=== PATIENT | female | born 1950 | race Caucasian/White ===

== ENCOUNTER → 2019-06-27 | Outpatient (CLI) | payer MEDICARE ==
[2019-06-27 15:17] LABS: HCT 44.3 % (34.0-46.0); HGB 14.8 gm/dL (11.4-16.0); MCH 31.3 pg (25.0-35.0); MCHC 33.3 g/dL (31.0-37.0); MCV 94.1 fL (80.0-100.0); Mean Platelet Volume 7.8; Platelet Count 244 k/uL (150-450); RBC 4.71 m/uL (3.80-5.40); RDW 11.9 % (11.5-15.5); WBC 7.9 k/uL (3.8-10.6)
[2019-06-27 23:04] LABS: African American GFR (CKD) 103.9 (60.0-200.0); Albumin 4.3 g/dL (3.80-4.90); Albumin/Globulin Ratio 2.69 (1.60-3.17); Anion Gap 8.8 mmol/L (4.00-12.00); BUN/Creat Ratio 35.71 Ratio (12.00-20.00); Calcium 9.4 mg/dL (8.7-10.3); Carbon Dioxide 32.2 mmol/L (21.6-31.8); Globulin 1.6 g/dL (1.6-3.3); Non-African American GFR(CKD) 89.7 (60.0-200.0); Potassium 4.3 mmol/L (3.5-5.5); Total Bilirubin 0.5 mg/dL (0.2-1.2); Total Protein 5.9 g/dL (6.2-8.2)
== END | disposition home or self-care (01) ==
LOC: LABMAIN 14:31
PROVIDERS: ATTEND Podiatrist Foot & Ankle Surgery
DX: Z01.812 Encounter for preprocedural laboratory examination (principal)
CPT/HCPCS: 36415; 80053; 85027

== ENCOUNTER 2019-07-08 11:38 | Day surgery (SDC) | payer MEDICARE ==
[2019-07-03 14:03] VITALS: BMI 24.7
[~2019-07-08 11:38] MED LIST: DEXAMETHASONE SOD PHOSPHATE 10 MG/ML 1 ML VIAL IV ONE; HYDROmorphone 0.5 MG/0.5 ML SYRINGE IVP PRN; LACTATED RINGERS 1,000 ML IV SCH; LIDOCAINE 1% 20 ML VIAL (10MG/ML) FOR IV START INTRADERMA PRN; Pre Op ABX Message 1 EACH MISC MISCELLANE ONE
[2019-07-08 11:57] VITALS: RESP 16; TEMP 97.3
[2019-07-08] MEDS ORDERED: ONDANSETRON 4 MG/2 ML VIAL IVP ONE (12:20)
[2019-07-08] MEDS ORDERED: MIDAZOLAM 2 MG/2 ML VIAL ONE (12:53)
[2019-07-08] MEDS ORDERED: PROPOFOL 10 MG/ML 20 ML VIAL IV ONE (12:53)
[2019-07-08] MEDS ORDERED: ePHEDrine SULFATE/0.9% NACL/PF 50 MG/5 ML SYRINGE IV ONE (12:53)
[2019-07-08] MEDS ORDERED: fentaNYL (PF) 50 MCG/ML 2 ML AMP ONE (12:53)
[2019-07-08] MEDS ORDERED: KETAMINE 10 MG/ML 20 ML VIAL ONE (12:53)
[2019-07-08] MEDS ORDERED: PHENYLEPHRINE-0.9% NACL SYG 1 MG/10 ML SYRINGE ONE (12:53)
[2019-07-08] MEDS ORDERED: SODIUM CHLORIDE 0.9% 100 ML with ceFAZolin 2,000 MG IV ONE ×2 (13:21)
[2019-07-08] MEDS ORDERED: BUPIVACAINE (PF) 0.25% 30 ML VIAL SQ ONE (13:31)
--- NOTE | 2019-07-08 13:58 | P.OP ---
Date of Procedure: 07/08/19 Preoperative Diagnosis: plantar declination did third metatarsal right foot Postoperative Diagnosis: same Procedure(s) Performed: V metatarsal elevating osteotomy third metatarsal right foot Anesthesia: MAC Surgeon: Eran Cunningham Indications for Procedure: painful callus sub-third metatarsal phalangeal joint right foot Operative Findings: unremarkable Description of Procedure: on the date of surgery the patient was taken to the operating room in good condition placed on the operating table in a supine position where an IV was started adequate IV anesthetic agents were utilized area anesthesia was then there supplemented with approximately 12.5 milliliters of 0.25% plain Marcaine given in an infiltrative block third ray complex of the patient's right foot the patient's right foot and ankle were then prepped and draped in the usual aseptic manner and over heavy web roll padding an ankle tourniquet was placed above the malleoli of the patient's right ankle the patient's right foot and ankle were then elevated and exsanguinated of blood and after approximately time the ankle tourniquet to the patient's right ankle was inflated to proximally 250 mm of mercury this point in time attention was directed to the dorsal aspect of the patient's right foot where an approximately 4 cm dorsal linear incision was made the incision was deepened via sharp dissection down through the level of the subcutaneous tissue layers all neurovascular structures encountered were identified isolated and were retracted and any bleeding vessels were clamped electrocauterized dissection was then carried deep down to level Periosteal Structures Overlying the redundant the shaft of the third metatarsal these were incised in line with the original skin incision and underscored and retracted from the underlying bone V metatarsal elevating osteotomy was then performed at the metaphysis of the third metatarsal on completion of this metatarsal osteotomy the capital fragment was displaced up by approximately 2 and a half millimeters capital fragment was impacted back upon the spike created by the osteotomy itself and then fixated with a 0.045 K wire throughout the surgical procedure copious amounts of sterile saline Evelyn was used to irrigate the surgical site Epsom periosteal structures and then coaptated and maintained utilizing 3-0 Vicryl simple interrupted suture subcutaneous tissue layers were coaptated and maintained utilizing 3-0 Vicryl simple interrupted suture and the subcutaneous tissues were then coaptated and maintained utilizing 3-0 Vicryl simple interrupted suture the skin was then closed utilizing 4-0 nylon simple interrupted suture Amaris Princelix fluffs and four-inch oh band was used to form a compression dressing and the ankle tourniquet to the patient's right ankle was deflated adequate hemostatic return was seen in all digits the patient's right foot specifically the third digit The patient tolerated the surgery and anesthesia well was taken recovery room in good postoperative condition.
[2019-07-08 14:26] VITALS: BP 120/79; PULSE 60
== END 2019-07-08 15:15 | disposition home or self-care (01) ==
LOC: OR 11:38
PROVIDERS: ATTEND Podiatrist Foot & Ankle Surgery
DX: M25.774 Osteophyte, right foot (principal); M89.371 Hypertrophy of bone, right ankle and foot; I10 Essential (primary) hypertension; F17.200 Nicotine dependence, unspecified, uncomplicated; Z79.899 Other long term (current) drug therapy; Z90.79 Acquired absence of other genital organ(s)
CPT/HCPCS: 28308; C1713; J2250; J1100; J2405; J0690; J3010; J2370; J2704

== ENCOUNTER → 2021-02-23 | Outpatient (CLI) | payer MEDICARE ==
--- NOTE | 2021-02-23 10:20 | US ---
EXAMINATION TYPE: US duplex aorta DATE OF EXAM: 02/23/2021 COMPARISON: NONE CLINICAL HISTORY: Z13.6 encounter for screening for cardiovascular. current smoker, no symptoms, no f amily history, diagnosis states screening office called by Justina Bowen to get a new diagnosis, but Dr Segovia refused. EXAM MEASUREMENTS: Abdominal Aorta: Proximal: 2.5 x 2.7cm Mid: 1.9 x 1.8cm Distal: 1.4 x 1.6cm Bifurcation: RT = 0.7cm, Lt = 0.8cm Normal caliber aorta seen IMPRESSION: 1. Normal screening abdominal aorta without aneurysm.
== END | disposition home or self-care (01) ==
LOC: RADUSWWP 08:56
PROVIDERS: ATTEND Family Medicine
DX: Z12.31 Encounter for screening mammogram for malignant neoplasm of breast (principal); Z13.6 Encounter for screening for cardiovascular disorders; Z78.0 Asymptomatic menopausal state
CPT/HCPCS: 93979

== ENCOUNTER → 2021-03-29 | Outpatient (CLI) | payer MEDICARE ==
--- NOTE | 2021-03-29 15:39 | XR ---
EXAMINATION TYPE: XR foot complete RT DATE OF EXAM: 03/29/2021 COMPARISON: NONE HISTORY: Pain TECHNIQUE: Three views are submitted. FINDINGS: The osseous structures are intact. There is no acute fracture or dislocation. There is hypertrophi c arthropathy first MTP joint. Distal joint limited due to positioning. Diffuse osteopenia. Chronic a ppearing fracture involving the third metatarsal. Calcaneal spurs noted. Diffuse osteopenia. IMPRESSION: 1. 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 2. Diffuse osteopenia. 3. Calcaneal spurs.
--- NOTE | 2021-03-30 15:21 | BD ---
EXAMINATION TYPE: Axial Bone Density DATE OF EXAM: 03/29/2021 COMPARISON: NONE CLINICAL HISTORY: Postmenopausal screening Height: 5 FT 4 IN Weight: 145 FRAX RISK QUESTIONS: Alcohol (3 or more units per day): NO Family History (Parent hip fracture): NO Glucocorticoids (More than 3mos): NO (Ex: prednisone, prednisolone, methylprednisolone, dexamethasone, and hydrocortisone). History of Fracture in Adulthood: NO Secondary Osteoporosis: 1. Type 1 Diabetes: NO 2. Hyperthyroidism: NO 3. Menopause before 45: NO 4. Malnutrition: NO 5. Chronic liver disease: NO Rheumatoid Arthritis: NO Current Tobacco Use: YES RISK FACTORS HISTORY OF: Surgery to Spine/Hip(right/left)/Wrist (right/left): NO Family History of Osteoporosis: NO Active: YES Diet low in dairy products/other sources of calcium: NO Postmenopausal woman: AGE 50/51 Take estrogen and/or progesterone medications: NO Lost more than 2 inches in height since high school: YES MEDICATIONS: Additional Medications: BLOOD PRESSURE MEDS, Additional History: EXAM MEASUREMENTS: Bone mineral densitometry was performed using the [employer] System. Bone mineral density as measured about the Lumbar spine is: ----- L1-L4(G/cm2): 1.050 T Score Values are as follows: ----- L2: -2.5 ----- L3: -0.3 ----- L4: 0.6 ----- L1-L4: -1.1 BASELINE Bone mineral density about the R hip (g/cm2): 0.790 Bone mineral density about the L hip (g/cm2): 0.750 T Score values are as follows: -----R Neck: -1.8 -----L Neck: -2.1 -----R Total: -1.6 -----L Total: -2.2 BASELINE IMPRESSION: Osteopenia (T Score between -2.5 and -1). There is slightly increased risk of fracture and the patient may be considered for treatment. Re-Screen 2-5 years. NOTE: T-SCORE=SD OF THE YOUNG ADULT MEAN.
== END | disposition home or self-care (01) ==
LOC: RADBDWWP 12:41
PROVIDERS: ATTEND Family Medicine
DX: Z12.31 Encounter for screening mammogram for malignant neoplasm of breast (principal); Z13.820 Encounter for screening for osteoporosis; Z13.6 Encounter for screening for cardiovascular disorders; M19.079 Primary osteoarthritis, unspecified ankle and foot; M85.871 Other specified disorders of bone density and structure, right ankle and foot; M77.31 Calcaneal spur, right foot
CPT/HCPCS: 77063; 77067; 77080

== ENCOUNTER 2022-03-13 08:26 | Emergency (ER) | payer MEDICARE ==
[2022-03-13 08:31] VITALS: BP 133/65; PULSE 60; RESP 20; TEMP 98
--- NOTE | 2022-03-13 08:51 | XR ---
EXAMINATION TYPE: XR chest 2V DATE OF EXAM: 03/13/2022 8:47 AM COMPARISON: None TECHNIQUE: XR chest 2V Frontal and lateral views of the chest. CLINICAL INDICATION:Female, 71 years old with history of Injury; FINDINGS: Lungs/Pleura: There is no evidence of pleural effusion, focal consolidation, or pneumothorax. Pulmonary vascularity: Unremarkable. Heart/mediastinum: Cardiomediastinal silhouette is unremarkable. Musculoskeletal: No acute osseous pathology. IMPRESSION: No acute cardiopulmonary disease/process.
--- NOTE | 2022-03-13 09:55 | ED ---
Fall HPI - General Chief Complaint: Fall Stated Complaint: fall, rib pain Time Seen by Provider: 03/13/22 08:45 Source: patient Mode of arrival: ambulatory - History of Present Illness Initial Comments: 71-year-old female presents emergency room and after she sustained a fall. Patient reports that she tripped on Saturday while ambulating. Her sandal got caught and she fell forward landing on her left-sided ribs. Patient did land on concrete. Admits that she sustained mouth trauma. Denies any headaches or visual pain. No neck pain. She did not lose consciousness. She does not take blood thinners. She did go to the dentist yesterday and already has dental repair pending. Patient comes in today complaining of left-sided chest wall pain and concern for rib fracture. She admits that she does not want to take a deep breath in due to the pain. Denies shortness of breath. No fevers, chills or cough. Denies any back pain. No numbness, tingling or weakness in her extremities. No other alleviating, precipitating or modifying factors - Related Data Home Medications Medication Instructions Recorded Confirmed Ascorbic Acid [Vitamin C] 500 mg PO DAILY 07/03/19 07/08/19 Multivitamins, Thera [Multivitamin 1 tab PO DAILY 07/03/19 07/08/19 (formulary)] [place]ont-3 Fatty Acids/Fish Oil [Fish 1 each PO DAILY 07/03/19 07/08/19 Oil 1,000 mg Softgel] Triamterene/Hydrochlorothiazid 1 each PO QAM 07/03/19 07/08/19 [Triamterene-Hctz 37.5-25 mg Tb] Varenicline [Chantix Continuing 1 mg PO BID 07/03/19 07/08/19 Pack] Previous Rx's Medication Instructions Recorded Lidocaine 5% Patch [Lidoderm] 1 patch TOPICAL DAILY #25 patch 03/13/22 Allergies Allergy/AdvReac Type Severity Reaction Status Date / Time No Known Allergies Allergy Verified 03/13/22 08:31 Review of Systems ROS Statement: Those systems with pertinent positive or pertinent negative responses have been documented in the HPI. ROS Other: All systems not noted in ROS Statement are negative. Past Medical History Past Medical History: No Reported History History of Any Multi-Drug Resistant Organisms: None Reported Past Surgical History: Tubal Ligation Past Psychological History: No Psychological Hx Reported Smoking Status: Current every day smoker Past Alcohol Use History: Occasional Past Drug Use History: None Reported General Exam Limitations: no limitations General appearance: alert, in no apparent distress Head exam: Present: atraumatic, normocephalic, normal inspection Eye exam: Present: normal appearance, PERRL, EOMI. Absent: scleral icterus, conjunctival injection, periorbital swelling ENT exam: Present: normal exam, mucous membranes moist Neck exam: Present: normal inspection. Absent: tenderness, meningismus, lymphadenopathy Respiratory exam: Present: normal lung sounds bilaterally, chest wall tenderness (left chest wall). Absent: respiratory distress, wheezes, rales, rhonchi, stridor Cardiovascular Exam: Present: regular rate, normal rhythm, normal heart sounds. Absent: systolic murmur, diastolic murmur, rubs, gallop, clicks GI/Abdominal exam: Present: soft, normal bowel sounds. Absent: distended, tenderness, guarding, rebound, rigid Extremities exam: Present: normal inspection, full ROM, normal capillary refill. Absent: tenderness, pedal edema, joint swelling, calf tenderness Back exam: Present: normal inspection Neurological exam: Present: alert, oriented X3, CN II-XII intact Psychiatric exam: Present: normal affect, normal mood Skin exam: Present: warm, dry, intact, normal color. Absent: rash Course Vital Signs 03/13/22 08:29 Temperature 98 F Pulse Rate 60 Respiratory 20 Rate Blood Pressure 133/65 O2 Sat by Pulse 98 Oximetry Medical Decision Making - Medical Decision Making Upon arrival to room 32. Thorough history and physical exam is performed. Patient is offered something for pain control however refused and she is sent over for x-ray imaging which does not demonstrate a rib fracture. No pneumothorax or rib contusion. Results are discussed with the patient. She will be prescribed Lidoderm patches. Patient given an incentive inspirometer. She will use Motrin at home for pain control. Instructed to follow-up with primary care doctor to 4 days and return for any new or worsening symptoms. Patient was agreeable and discharged home in stable condition Disposition Clinical Impression: Fall, Rib pain on left side, Muscle strain of chest wall Disposition: HOME SELF-CARE Condition: Stable Instructions (If sedation given, give patient instructions): Chest Wall Pain (ED) Additional Instructions: Use the incentive spirometer several times throughout the day. Use the lidocaine patches as directed. If they are expensive, asked for the [id number] alternative. Follow up with your doctor in 2-4 days and return for any new or worsening symptoms Prescriptions: Lidocaine 5% Patch [Lidoderm] 1 patch TOPICAL DAILY #25 patch Is patient prescribed a controlled substance at d/c from ED?: No Referrals: Art Segovia MD [Primary Care Provider] - 1-2 days Time of Disposition: 09:55
== END 2022-03-13 10:33 | disposition home or self-care (01) ==
LOC: EC 08:26
DX: S29.011A Strain of muscle and tendon of front wall of thorax, initial encounter (principal); R07.81 Pleurodynia; F17.200 Nicotine dependence, unspecified, uncomplicated; W19.XXXA Unspecified fall, initial encounter
CPT/HCPCS: 71046; 99284

== ENCOUNTER → 2022-03-20 | Outpatient (CLI) | payer MEDICARE ==
--- NOTE | 2022-03-20 08:39 | CT ---
EXAMINATION TYPE: CT brain wo con DATE OF EXAM: 03/20/2022 COMPARISON: None HISTORY: 71-year-old female R55, Syncope and collapse TECHNIQUE: Examination was done in axial plane without intravenous contrast. Coronal and sagittal r econstructions performed. CT DLP: 1009.40 mGycm Automated exposure control for dose reduction was used. FINDINGS: There is no evidence of acute intracranial hemorrhage, acute ischemic changes, mass, mass-effect, or extra-axial fluid collection. There is no effacement of cerebral sulci or basal subarachnoid cister ns. There is no hydrocephalus. There is no midline shift. Mcnair-white matter distinction is preserv ed. Mild atherosclerotic calcifications in the carotid siphons. Incidental 6 mm osteoma in inferior left frontal sinus. Right frontal sinus hypoplastic. Scattered mi ld mucosal thickening ethmoid air cells. Mastoid air cells well pneumatized. Orbits and globes are in tact. There is also a 1.6 cm broad-based bony protuberance from the right frontal calvarium, likely o uter table osteoma. IMPRESSION: No acute intracranial abnormality seen. 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 Mild chronic ethmoid sinus disease.
== END | disposition home or self-care (01) ==
LOC: RADCTMAIN 07:14
PROVIDERS: ATTEND Family Medicine
DX: R55 Syncope and collapse (principal)
CPT/HCPCS: 70450

== ENCOUNTER → 2022-03-22 | Outpatient (CLI) | payer MEDICARE ==
--- NOTE | 2022-03-22 16:22 | US ---
EXAMINATION TYPE: US carotid duplex BILAT DATE OF EXAM: 03/22/2022 COMPARISON: NONE CLINICAL HISTORY: R55 SYNCOPE. Syncope TECHNIQUE: Carotid duplex ultrasound examination. Indirect Doppler criteria was utilized. FINDINGS: EXAM MEASUREMENTS: RIGHT: Peak Systolic Velocity (PSV) cm/sec ----- Right CCA: 86.8 ----- Right ICA: 91.5 ----- Right ECA: 83.9 ICA/CCA ratio: 1.1 RIGHT: End Diastole cm/sec ----- Right CCA: 10.0 ----- Right ICA: 32.3 ----- Right ECA: 9.1 LEFT: Peak Systolic Velocity (PSV) cm/sec ----- Left CCA: 89.4 ----- Left ICA: 91.0 ----- Left ECA: 95.0 ICA/CCA ratio: 1.0 LEFT: End Diastole cm/sec ----- Left CCA: 18.7 ----- Left ICA: 52.0 ----- Left ECA: 9.6 VERTEBRALS (direction of flow): Right Vertebral: Antegrade Left Vertebral: Antegrade Rhythm: Normal No significant stenosis. There is focal plaque within knee right carotid bulb. No significant flow-li miting stenoses are evident. IMPRESSION: No significant flow-limiting stenosis bilateral carotid bifurcations Criteria for Assigning % of Stenosis / Diameter reduction (Estimation based on the indirect measurements of the internal carotid artery velocities (ICA PSV). 1. Normal (no stenosis)=ICA PSV < 125 cm/s: ratio < 2.0: ICA EDV<40 cm/s. 2. Less than 50% stenosis=ICA PSV < 125 cm/s: ratio < 2.0: ICA EDV<40 cm/s. 3. 50 to 69% stenosis=ICA PSV of 125 to 230 cm/s: ration 2.0 ? 4.0: ICA EDV 40-100 cm/s. 4. Greater than 70% stenosis to near occlusion= ICA PSV > 230 cm/s: ratio > 4.0: ICA EDV > 100 cm/s. 5. Near occlusion= ICA PSV velocities may be low or undetectable: variable ratio and ICA EDV. 6. Total occlusion=unable to detect flow.
== END | disposition home or self-care (01) ==
LOC: RADUSWWP 14:49
PROVIDERS: ATTEND Family Medicine
DX: R55 Syncope and collapse (principal)
CPT/HCPCS: 93880

== ENCOUNTER → 2022-04-30 | Outpatient (CLI) | payer MEDICARE ==
--- NOTE | 2022-05-01 09:32 | CA ---
Transthoracic Echo Report Name: Humera Saenz Age: 71 Gender: F : 1950 Exam Date: 04/30/2022 11:27 Exam Location: [facility] Ht (in): 64 Wt (lb): 130 Ordering Physician: Art Segovia MD Attending/Referring Phys: Art Segovia MD [employer] Dara Ash RDCS Procedure CPT: Indications: R55 Syncope Cardiac Hx: Technical Quality: Fair Contrast 1: Total Dose (mL): Contrast 2: Total Dose (mL): MEASUREMENTS (Male / Female) Normal Values 2D ECHO LV Diastolic Diameter PLAX 4.3 cm 4.2 - 5.9 / 3.9 - 5.3 cm LV Systolic Diameter PLAX 2.9 cm IVS Diastolic Thickness 1.2 cm 0.6 - 1.0 / 0.6 - 0.9 cm LVPW Diastolic Thickness 1.2 cm 0.6 - 1.0 / 0.6 - 0.9 cm LV Relative Wall Thickness 0.5 RV Internal Dim ED PLAX 3.8 cm LA Volume 42.6 cm??? 18 - 58 / 22 - 52 cm??? M-MODE Aortic Root Diameter MM 3.2 cm LA Systolic Diameter MM 3.9 cm LA Ao Ratio MM 1.2 AV Cusp Separation MM 1.8 cm DOPPLER AV Peak Velocity 162.2 cm/s AV Peak Gradient 10.5 mmHg AV Mean Velocity 106.2 cm/s AV Mean Gradient 5.1 mmHg AV Velocity Time Integral 33.8 cm AI Peak Velocity 491.2 cm/s AI Peak Gradient 96.5 mmHg AI Pressure Half Time 454.4 ms LVOT Peak Velocity 113.1 cm/s LVOT Peak Gradient 5.1 mmHg LVOT Velocity Time Integral 25.8 cm MV Area PHT 2.8 cm??? Mitral E Point Velocity 55.6 cm/s Mitral A Point Velocity 52.9 cm/s Mitral E to A Ratio 1.1 MV Deceleration Time 272.0 ms MV E' Velocity 6.4 cm/s Mitral E to MV E' Ratio 8.8 TR Peak Velocity 251.9 cm/s TR Peak Gradient 25.4 mmHg Right Ventricular Systolic Press 29.4 mmHg FINDINGS Left Ventricle Mildly increased left ventricular wall thickness. Normal left ventricular systolic function with no obvious regional wall motion abnormalities. Normal left ventricular diastolic filling pattern. Left ventricular ejection fraction is estimated at 55-60 %. Right Ventricle Mild right ventricular dilatation. Right ventricular systolic pressure within normal limits. Right Atrium Normal right atrial size. Left Atrium Normal left atrial size. Mitral Valve Structurally normal mitral valve. No mitral stenosis, regurgitation or prolapse. Aortic Valve Trileaflet aortic valve. No aortic stenosis. Mild aortic regurgitation. Tricuspid Valve Structurally normal tricuspid valve. Mild tricuspid regurgitation. Pulmonic Valve Trace pulmonic regurgitation. Pericardium No pericardial effusion. Aorta Normal size aortic root and proximal ascending aorta. CONCLUSIONS Normal biventricular dimension and systolic function Mild aortic insufficiency Previewed by: Dr. Francisco J Au MD (Electronically Signed) Final Date: 01 May 2022 09:31
== END | disposition home or self-care (01) ==
LOC: RADECHMAIN 11:21
PROVIDERS: ATTEND Family Medicine
DX: I35.1 Nonrheumatic aortic (valve) insufficiency (principal)
CPT/HCPCS: 93306

== ENCOUNTER → 2023-04-30 | Outpatient (CLI) | payer MEDICARE ==
--- NOTE | 2023-04-30 10:58 | MM ---
Reason for Exam: Screening (asymptomatic). Last mammogram was performed 2 year(s) and 1 month(s) ago. Patient History: Menarche at age 14. First Full-Term at age 20. Postmenopausal. Risk Values: Rosario 5 year model risk: 1.3%. NCI Lifetime model risk: 3.5%. Prior Study Comparison: 06/12/2016 Screening Mammogram, [facility] [place]. 03/29/2021 Bilateral Screening Mammogram, [facility]. Tissue Density: The breast tissue is heterogeneously dense. This may lower the sensitivity of mammography. Findings: Analyzed By CAD. There is no suspicious group of microcalcifications or new suspicious mass in either breast. Overall Assessment: Negative, BI-RAD 1 Management: Screening Mammogram of both breasts in 1 year. A clinical breast exam by your physician is recommended on an annual basis and results should be correlated with mammographic findings. Note on Rosario scores and lifetime risk: 1. A Rosario score greater than 3% is considered moderate risk. If this is the case, consider specialist referral to assess eligibility for a risk reducing agent. If overall lifetime risk for the development of breast cancer is 20% or higher, the patient may qualify for future screening with alternating mammogram and breast MRI. Electronically signed and approved by: Edmund Rubio D.O.
--- NOTE | 2023-04-30 11:14 | BD ---
EXAMINATION TYPE: Axial Bone Density DATE OF EXAM: 04/30/2023 CLINICAL HISTORY: 72 years old Female. ICD-10 CODE: Z78.0 ASYMPTOMATIC MENOPAUSAL Height: 64.5 Weight: 137.7 FRAX RISK QUESTIONS: Alcohol (3 or more units per day): no Family History (Parent hip fracture): no Glucocorticoids (More than 3mos): no (Ex: prednisone, prednisolone, methylprednisolone, dexamethasone, and hydrocortisone). History of Fracture in Adulthood: no Secondary Osteoporosis: 1. Type 1 Diabetes: no 2. Hyperthyroidism: no 3. Menopause before 45: no 4. Malnutrition: no 5. Chronic liver disease: no Rheumatoid Arthritis: no Current Tobacco Use: yes RISK FACTORS HISTORY OF: Surgery to Spine/Hip(right/left)/Wrist (right/left): no Family History of Osteoporosis: yes Active: yes Diet low in dairy products/other sources of calcium: no Postmenopausal woman: yes Lost more than 2 inches in height since high school: yes MEDICATIONS: Additional History: EXAM MEASUREMENTS: Bone mineral densitometry was performed using the [employer] System. Bone mineral density as measured about the Lumbar spine is: ----- L1-L4(G/cm2): 1.060 T Score Values are as follows: ----- L1: -2.8 ----- L2: -2.1 ----- L3: -0.2 ----- L4: 0.7 ----- L1-L4: -1.0 Z Score Values are as follows: ----- L1: -1.1 ----- L2: -0.3 ----- L3: 1.6 ----- L4: 2.5 ----- L1-L4: 0.8 Bone mineral density has: increased 1.0 % since study of: 03.29.2021 Bone mineral density about the R hip (g/cm2): 0.758 Bone mineral density about the L hip (g/cm2): 0.675 T Score values are as follows: -----R Neck: -2.1 -----L Neck: -2.6 -----R Total: -2.0 -----L Total: -2.6 Z Score values are as follows: -----R Neck: -0.3 -----L Neck: -0.8 -----R Total: -0.4 -----L Total: -1.0 Bone mineral density has: decreased -6.8 % since study of: 10.6.2020 FRAX%s: The graph provided illustrates a 17.6% chance for a major osteoporotic fx and a 7.8% chance f or the hips probability for fx in 10 years time. IMPRESSION: Osteoporosis (T Score less than -2.5). There is increased fracture risk and therapy is usually indicated based on age. Re-Screen 1-2 years. NOTE: T-SCORE=SD OF THE YOUNG ADULT MEAN.
== END | disposition home or self-care (01) ==
LOC: RADMAMWWP 10:29
PROVIDERS: ATTEND Family Medicine
DX: Z12.31 Encounter for screening mammogram for malignant neoplasm of breast (principal); M81.0 Age-related osteoporosis without current pathological fracture; M85.89 Other specified disorders of bone density and structure, multiple sites; Z78.0 Asymptomatic menopausal state
CPT/HCPCS: 77063; 77067; 77080

== ENCOUNTER → 2024-07-22 | Outpatient (CLI) | payer MEDICARE ==
--- NOTE | 2024-07-22 11:34 | MM ---
Reason for Exam: Screening (asymptomatic). Last mammogram was performed 1 year(s) and 2 month(s) ago. Patient History: Menarche at age 14. First Full-Term at age 20. Postmenopausal. Risk Values: Rosario 5 year model risk: 1.3%. NCI Lifetime model risk: 3.3%. Prior Study Comparison: 06/12/2016 Screening Mammogram, [facility] [place]. 03/29/2021 Bilateral Screening Mammogram, [facility]. 04/30/2023 Bilateral MG 3D screening mammo w/cad, [facility]. Tissue Density: There are scattered areas of fibroglandular density. Findings: Analyzed By CAD. Right breast: There is no suspicious group of microcalcifications or new suspicious mass. Left breast: There is no suspicious group of microcalcifications or new suspicious mass. Overall Assessment: Negative, BI-RAD 1 Management: Screening Mammogram of both breasts in [address] [facility] will attempt to contact patient to return for supplemental views and ultrasound if indicated. Patient should continue monthly self-breast exams. A clinical breast exam by your physician is recommended on an annual basis. This exam should not preclude additional follow-up of suspicious palpable abnormalities. Note on Rosario scores and lifetime risk: 1. A Rosario score greater than 3% is considered moderate risk. If this is the case, consider specialist referral to assess eligibility for a risk reducing agent. 2. If overall lifetime risk for the development of breast cancer is 20% or higher, the patient may qualify for future screening with alternating mammogram and breast MRI. [facility], , 07/22/2024 11:31 AM. Electronically signed and approved by: Blue Mcelroy DO
== END | disposition home or self-care (01) ==
LOC: RADMAMWWP 10:44
PROVIDERS: ATTEND Family Medicine
DX: Z12.31 Encounter for screening mammogram for malignant neoplasm of breast (principal); R92.333 Mammographic heterogeneous density, bilateral breasts; Z78.0 Asymptomatic menopausal state
CPT/HCPCS: 77067

== ENCOUNTER 2024-08-12 09:12 | Day surgery (SDC) | payer MEDICARE ==
[2024-08-11 10:12] VITALS: BMI 21.9
--- NOTE | 2024-08-12 09:07 | P.GSHP ---
History of Present Illness H&P Date: 08/12/24 CHIEF COMPLAINT: Colon screen HISTORY OF PRESENT ILLNESS: The patient is a 73-year-old female who presents for colon screen. Lower endoscopy was offered for further evaluation and management. PAST MEDICAL HISTORY: Please see list. PAST SURGICAL HISTORY: Please see list. MEDICATIONS: Please see list. ALLERGIES: Please see list. SOCIAL HISTORY: No illicit drug use FAMILY HISTORY: No reports of Crohn disease or ulcerative colitis. REVIEW OF ORGAN SYSTEMS: CONSTITUTIONAL: No reports of fevers or chills. PHYSICAL EXAM: VITAL SIGNS: Stable GENERAL: Well-developed pleasant in no acute distress. HEENT: No scleral icterus. Extraocular movements grossly intact. Moist buccal mucosa. NECK: Supple without lymphadenopathy. CHEST: Unlabored respirations. Equal bilateral excursions. CARDIOVASCULAR: Regular rate and rhythm. Distal 2+ pulses. ABDOMEN: Soft, nontender, nondistended. MUSCULOSKELETAL: No clubbing, cyanosis, or edema. ASSESSMENT: 1. Colon screen. PLAN: 1. Recommend proceeding with a lower endoscopy Past Medical History Past Medical History: No Reported History Additional Past Medical History / Comment(s): Fluid retention since early from Iodized salt. Cataracts, Failed cologuard History of Any Multi-Drug Resistant Organisms: None Reported Past Surgical History: Tubal Ligation Additional Past Surgical History / Comment(s): Cataract surgery Past Anesthesia/Blood Transfusion Reactions: No Reported Reaction Smoking Status: Current every day smoker - Past Family History Father Family Medical History: Myocardial Infarction (ID) Medications and Allergies Home Medications Medication Instructions Recorded Confirmed Type Multivitamins, Thera [Multivitamin 1 tab PO DAILY 07/03/19 08/11/24 History (formulary)] [place]-3 Fatty Acids/Fish Oil [Fish 1 each PO DAILY 07/03/19 08/11/24 History Oil 1,000 mg Softgel] Glucosa Hicks 2Kcl/Chondroitin Hicks 1 each PO DAILY 08/11/24 08/11/24 History [Glucosamine-Chondroitin Cap] Triamterene/Hydrochlorothiazid 37.5 mg PO DAILY 08/11/24 08/11/24 History [Triamterene-Hctz 37.5-25 mg Cp] Allergies Allergy/AdvReac Type Severity Reaction Status Date / Time No Known Allergies Allergy Verified 08/11/24 10:02
[2024-08-12] MEDS: LACTATED RINGERS 1,000 ML IV SCH (09:51)
[2024-08-12] MEDS: IV FLUID CONTINUATION 1,000 ML IV ONE (09:55)
[2024-08-12 10:00] VITALS: TEMP 98.6
[2024-08-12] MEDS ORDERED: GLYCOPYRROLATE 0.2 MG/ML 2 ML VIAL ONE (10:28)
[2024-08-12] MEDS ORDERED: LIDOCAINE 1% INJ 10MG/ML (20 ML MDV) ONE (10:28)
[2024-08-12] MEDS ORDERED: PROPOFOL 10 MG/ML 20 ML VIAL IV ONE (10:28)
[2024-08-12 11:33] VITALS: BP 137/59; PULSE 53; RESP 14
--- NOTE | 2024-08-12 12:41 | P.PCN ---
Date of Procedure: 08/12/24 Description of Procedure: PREOPERATIVE DIAGNOSIS: Abnormal Cologuard testing Colonoscopy screening POSTOPERATIVE DIAGNOSIS: Tubular adenoma ascending colon Tubular adenoma cecum Tubular adenoma hepatic flexure Tubular adenoma transverse colon Tubular adenoma descending colon Tubular adenoma rectum Internal hemorrhoids, grade 2 OPERATION: Colonoscopy to the ileocecal valve and appendiceal orifice, cecum Colonoscopy with hot snare polypectomy SURGEON: Nivia Mccall MD. ANESTHESIA: MAC. INDICATIONS: The patient is an 73-year-old female who presents for first colonoscopy. She presents with abnormal Cologuard. Benefits and risks were described and informed consent was obtained. DESCRIPTION OF PROCEDURE: The patient had undergone Sutab prep. The patient had been brought into the operating room and laid in the left lateral decubitus position. After adequate intravenous sedation, the rectum was examined with 2% lidocaine jelly. The prostate was unremarkable. External hemorrhoids were encountered. The rectal tone was within normal limits. No lesions were palpated in the rectal vault. An Olympus colonoscope was advanced until the cecum, ileocecal valve and appendiceal orifice were clearly viewed. The prep was fair. No large sigmoid diverticulosis was encountered. Colonic polyps were found and removed. No evidence of focal colitis was found. Retroflexion of the scope demonstrated grade 2 internal hemorrhoids without active bleeding or inflammation. The colon was desufflated. The patient had tolerated the procedure well. Withdrawal time was over 6 minutes. FINDINGS: Aronchick preparation quality scale 3 (1-5) Internal hemorrhoids, grade 2 External hemorrhoids, grade 2. No arteriovenous malformations. No large sigmoid diverticulosis Removal of 15 polyps: - Snare polypectomy 10 cm from the anal verge x 2, 4 to 5 mm tubulovillous adenoma, rectum - Snare polypectomy descending colon, 8 mm flat villous adenoma - Snare polypectomy transverse colon, 6 mm flat villous adenoma - Snare polypectomy hepatic flexure, 12 mm flat villous adenoma - Snare polypectomy ascending colon x 5, 4-6 mm adenoma - Snare polypectomy cecum x 6, 6-8 mm flat villous adenoma No focal colitis. RECOMMENDATIONS: Given severity of tubular adenomas, recommend repeat colonoscopy in 3 to 6 months, October to January 2025 Plan - Discharge Summary Discharge Rx Participant: No New Discharge Prescriptions: Continue Multivitamins, Thera [Multivitamin (formulary)] 1 tab PO DAILY [place]-3 Fatty Acids/Fish Oil [Fish Oil 1,000 mg Softgel] 1 each PO DAILY Triamterene/Hydrochlorothiazid [Triamterene-Hctz 37.5-25 mg Cp] 37.5 mg PO DAILY Glucosa Hicks 2Kcl/Chondroitin Hicks [Glucosamine-Chondroitin Cap] 1 each PO DAILY Discharge Medication List Multivitamins, Thera [Multivitamin (formulary)] 1 tab PO DAILY 07/03/19 [History] [place]-3 Fatty Acids/Fish Oil [Fish Oil 1,000 mg Softgel] 1 each PO DAILY 07/03/19 [History] Glucosa Hicks 2Kcl/Chondroitin Hicks [Glucosamine-Chondroitin Cap] 1 each PO DAILY [History] Triamterene/Hydrochlorothiazid [Triamterene-Hctz 37.5-25 mg Cp] 37.5 mg PO DAILY 08/11/24 [History] Follow up Appointment(s)/Referral(s): Nivia Mccall MD [STAFF PHYSICIAN] - 09/08/24 11:30 am Patient Instructions/Handouts: Colorectal Polyps (GEN) Activity/Diet/Wound Care/Special Instructions: Repeat colonoscopy in 6 months, January 2025 Discharge Disposition: HOME SELF-CARE
== END 2024-08-12 12:26 | disposition home or self-care (01) ==
LOC: ORWHC2ENDO 09:12
PROVIDERS: ATTEND Surgery Plastic and Reconstructive Surgery
DX: Z12.11 Encounter for screening for malignant neoplasm of colon (principal); D12.5 Benign neoplasm of sigmoid colon; D12.2 Benign neoplasm of ascending colon; D12.0 Benign neoplasm of cecum; D12.3 Benign neoplasm of transverse colon; K63.5 Polyp of colon; K64.1 Second degree hemorrhoids; R19.5 Other fecal abnormalities; F17.210 Nicotine dependence, cigarettes, uncomplicated; Z79.899 Other long term (current) drug therapy; Z98.51 Tubal ligation status; Z98.49 Cataract extraction status, unspecified eye
CPT/HCPCS: 88305; 45385; J2003; J2704; J1596

== ENCOUNTER → 2025-01-01 | Outpatient (CLI) | payer MEDICARE ==
--- NOTE | 2025-01-01 18:13 | CA ---
Transthoracic Echo Report Name: Humera Saenz Age: 74 Gender: F : 1950 Exam Date: 01/01/2025 11:41 Exam Location: [facility] Ht (in): 66 Wt (lb): 130 Ordering Physician: Art Segovia MD Attending/Referring Phys: Teresa Scott [employer] Ranger Darvin Turcios RDCS Procedure CPT: Indications: I35.1 NONRHEUMATIC AORTIC (VALVE) INSUFFICIENCY Cardiac Hx: done by Shirley Thibodeaux Technical Quality: Fair Contrast 1: Total Dose (mL): Contrast 2: Total Dose (mL): MEASUREMENTS (Male / Female) Normal Values 2D ECHO LV Diastolic Diameter PLAX 4.5 cm 4.2 - 5.9 / 3.9 - 5.3 cm LV Systolic Diameter PLAX 3.0 cm IVS Diastolic Thickness 0.8 cm 0.6 - 1.0 / 0.6 - 0.9 cm LVPW Diastolic Thickness 0.9 cm 0.6 - 1.0 / 0.6 - 0.9 cm LV Relative Wall Thickness 0.4 RV Internal Dim ED PLAX 3.1 cm LVOT Diameter 1.9 cm LA Systolic Diameter LX 3.0 cm 3.0 - 4.0 / 2.7 - 3.8 cm LV Diastolic Volume MOD BP 93.2 cm??? 67 - 155 / 56 - 104 cm??? LV Systolic Volume MOD BP 27.9 cm??? 22 - 58 / 19 - 49 cm??? LV Ejection Fraction MOD BP 70.0 % >= 55 % LV Cardiac Index MOD BP 2049.2 cm???/min???m??? LV Diastolic Volume MOD 4C 108.1 cm??? LV Systolic Volume MOD 4C 30.8 cm??? LV Ejection Fraction MOD 4C 71.6 % LV Cardiac Index MOD 4C 2429.6 cm???/min???m??? LV Diastolic Length 4C 7.4 cm LV Systolic Length 4C 6.6 cm LV Diastolic Volume MOD 2C 78.3 cm??? LV Systolic Volume MOD 2C 22.8 cm??? LV Ejection Fraction MOD 2C 70.9 % LV Cardiac Index MOD 2C 1742.8 cm???/min???m??? LV Diastolic Length 2C 7.2 cm LV Systolic Length 2C 5.9 cm M-MODE Aortic Root Diameter MM 3.3 cm LA Systolic Diameter MM 2.2 cm LA Ao Ratio MM 0.7 DOPPLER AV Peak Velocity 152.5 cm/s AV Peak Gradient 9.3 mmHg AI Peak Velocity 479.3 cm/s AI Peak Gradient 91.9 mmHg AI Pressure Half Time 549.4 ms LVOT Peak Velocity 122.0 cm/s LVOT Peak Gradient 5.9 mmHg AV Area Cont Eq pk 2.2 cm??? Mitral E Point Velocity 58.9 cm/s Mitral A Point Velocity 51.3 cm/s Mitral E to A Ratio 1.1 MV Deceleration Time 409.9 ms MV E' Velocity 5.7 cm/s Mitral E to MV E' Ratio 10.4 TR Peak Velocity 227.7 cm/s TR Peak Gradient 20.7 mmHg Right Ventricular Systolic Press 25.7 mmHg FINDINGS Left Ventricle Left ventricular ejection fraction is estimated at 65-70 %. Left ventricular cavity size normal. No obvious regional wall motion abnormalities. Right Ventricle Normal right ventricular size and function. Right Atrium Normal right atrial size. No right atrial thrombus or mass seen. Left Atrium Mild left atrial dilatation. No left atrial thrombus or mass present. Mitral Valve Moderate thickening/calcification of the anterior and posterior mitral valve leaflets. No mitral stenosis. Mild mitral regurgitation. Aortic Valve Trileaflet aortic valve. Diffuse thickening (sclerosis) of the aortic valve cusps without reduced excursion. Moderate aortic regurgitation. Tricuspid Valve Mildly thickened tricuspid valve leaflets.mild tricuspid regurgitation. Pulmonic Valve Pulmonic valve not well visualized. No pulmonic regurgitation. Pericardium No pericardial effusion. Question Pleural effusion. Aorta Normal size aortic root and proximal ascending aorta. CONCLUSIONS Reason. Evaluation for aortic valve disease Normal LV size and function Normal RV size and function Trileaflet aortic valve with thickened leaflets and moderate regurgitation Previewed by: Dr. Odell Salguero MD (Electronically Signed) Final Date: 01 January 2025 18:12
== END | disposition home or self-care (01) ==
LOC: RADECHMAIN 11:25
PROVIDERS: ATTEND Family Medicine
DX: I35.1 Nonrheumatic aortic (valve) insufficiency (principal)
CPT/HCPCS: 93306